=== PATIENT | female | born 1965 | race Caucasian/White ===

== ENCOUNTER 2019-03-06 12:13 | Observation (INO) | payer OTHER ==
[~2019-03-06] VITALS: Ht 157.5 cm; Wt 98.2 kg
[2019-03-06 13:10] LABS: Alanine Aminotransfer (ALT/SGP 30 U/L (12-78); Albumin, Blood 3.7 g/dL (3.4-5.0); Alk Phos 62 U/L (50-136); Anion Gap 8 mmol/L (6-16); Aspartate Aminotrans (AST/SGOT 28 U/L (12-37); Bilirubin, Total 0.5 mg/dL (0.1-1.0); Blood Urea Nitrogen 9 mg/dL (8-24); CO2, Blood 22 mmol/L (21-32); Calcium, Blood 8.9 mg/dL (8.5-10.1); Chloride, Blood 105 mmol/L (98-108); Creatinine, Blood 0.65 mg/dL (0.40-1.00); Globulin, Blood 3.6 g/dL (2.2-4.0); Glomerular Filtration Rate >60 (60-); Glucose, Blood 98 mg/dL (70-99); Potassium, Blood 4.5 mmol/L (3.5-5.5); Sodium, Blood 135 mmol/L (136-145); Total Protein, Blood 7.3 g/dL (6.4-8.2)
[2019-03-06 14:04] LABS: Source, Urine Clean Catch
[2019-03-06 14:12] LABS: BASOPHILS ABSOLUTE AUTO 0.05 K/mm3 (0.00-0.23); BASOPHILS PERCENT AUTO 0 % (0-2); EOSINOPHILS ABSOLUTE AUTO 0.02 K/mm3 (0.00-0.68); EOSINOPHILS PERCENT AUTO 0 % (0-6); Hemoglobin 14.3 g/dL (11.5-16.0); IMMATURE GRAN ABSOLUTE AUTO 0.02 K/mm3 (0.00-0.10); IMMATURE GRAN PERCENT AUTO 0 % (0-1); LYMPHOCYTES ABSOLUTE AUTO 0.98 K/mm3 (0.84-5.20); LYMPHOCYTES PERCENT AUTO 9 % (21-46); MONOCYTES PERCENT AUTO 4 % (4-13); Mean Corpuscular HGB 30.1 pg (26.0-34.0); Mean Corpuscular HGB Conc 32.5 g/dL (31.5-36.5); Mean Corpuscular Volume 93 fL (80-100); NEUTROPHILS PERCENT AUTO 87 % (41-73); Platelet Count 248 K/mm3 (150-400); RDW Coefficient Variation 12.5 % (11.7-14.2); Red Blood Cell Count 4.75 M/mm3 (3.80-5.20); White Blood Cell Count 11.37 K/mm3 (4.00-11.30)
[2019-03-06 14:13] LABS: Appearance, Urine Clear (Clear); Bilirubin, Urine Neg (Neg); Blood, Urine 2+ (Neg); Color, Urine Yellow (P-Yellow); Glucose Qualitative, Urine Neg (Neg); Ketones, Urine Neg (Neg); Leukocyte Esterase, Urine Neg (Neg); Nitrite, Urine Neg (Neg); Protein, Urine Neg (Neg); Specific Gravity, Urine 1.015 (1.003-1.022); Urobilinogen, Urine NORM (Normal)
[2019-03-06 14:38] LABS: Bacteria Rare /hpf; Mucus Heavy (0-Heavy); Red Blood Cells, Urine 0-2 /hpf (0-2); Squamous Epithelial Cells Mod /hpf (Few); White Blood Cells, Urine 0-2 /hpf (0-5)
[2019-03-06] MEDS ORDERED: Zantac150 MG PO (17:16)
[2019-03-06] MEDS ORDERED: MELA3 PO (17:16)
[2019-03-06] MEDS ORDERED: ASPI325EC PO (17:16)
--- NOTE | 2019-03-06 18:45 | NUR ---
pt arrived to room 213 from er dept pt is being admitted for ruq abd pain pos for gallstones npo after mn for lap natalie pt given cl diet no pain or nausea at this time oriented to room
--- NOTE | 2019-03-07 05:04 | NUR ---
SUMMARY PT WAS A NEW ADMIT AT THE END OF DAY SHIFT YESTERDAY FOR ACUTE VAZQUEZ. PT HAS DONE VERY WELL DURING NIGHT. DENIES ANY ABD PAIN AND N/V. PT WAS MEDICATED FOR SANDOVAL AT BEGINNING OF SHIFT. PT IS NPO, SURGICAL PACKET ON CHART. PLAN FOR OR TODAY FOR LAP VAZQUEZ. PT IS INDEPENDENT IN ROOM. CALL LIGHT IN REACH. WILL REPORT OFF TO DAY SHIFT.
--- NOTE | 2019-03-07 12:46 | NUR ---
TO DAY SURGERY WITH NOON ABX PER DAY SURG REQUEST
--- NOTE | 2019-03-07 13:06 | NUR ---
Surgical site prepped with 2% Chlorhexidine cloth wipe. History, Chart, Medications and Allergies reviewed before start of procedure. Lungs clear T/O to Auscultation. Patient confirms NPO status and agrees with scheduled surgery. Pre-Op teaching done. Pt verbalizes understanding.
--- NOTE | 2019-03-07 13:30 | NUR ---
ASSUMING CARE OF PT AT THIS TIME. PT IS SLEEPING
--- NOTE | 2019-03-07 15:04 | NUR ---
PT HAS BEEN RESTING QUIETLY WAITING TO HAVE SURGERY. PT TOLD RN THAT SHE FELT SHE WAS GOING TO THROW UP. RN SAT PT UP IN [facility] GAVE AN EMESIS BAG. ADMINISTERED 4MG IV ZOFRAN TO PT-PT ALLOWED TO HAVE PER HOSPITAL POLICY TIME FRAME.
--- NOTE | 2019-03-07 15:18 | NUR ---
SAW PT IN ROOM. PAPERWORK COMPLETE.
--- NOTE | 2019-03-07 15:20 | NUR ---
PT UP TO THE BATHROOM.
--- NOTE | 2019-03-07 15:20 | NUR ---
OR FARM MACHINERY ERECTOR RN (MAXWELL) BEDSIDE REPORT DONE.
--- NOTE | 2019-03-07 15:49 | NUR ---
03/07/19 1549 Nelly Sanders PT ON SCHEDULED ANTIBIOTICS
--- NOTE | 2019-03-08 04:54 | NUR ---
SHIFT SUMMARY: PT POD #1 FOR LAP VAZQUEZ. A&O X4, VS WNL. STERI STRIPS TO ABD X4. GAUZE APPLIED TO UMBILICAL STERI STRIP R/T SML AMT OF BLEEDING. GAUZE CHANGED TWICE THIS SHIFT. PT DENIES PAIN. OOB SEVERAL TIMES TO BATHROOM. INDEPENDENT IN ROOM. VOIDING WELL. SALINE LOCKED. JONAS CLR LIQS. DENIES N/V.
[2019-03-08] MEDS ORDERED: Norco 5-325 Ta1 EACH PO (11:05)
--- NOTE | 2019-03-08 11:43 | NUR ---
D/C D/C INSTRUCTIONS AND RX PROVIDED. PT STATES UNDERSTANDING. IV'S D/C'D WNL. PT AWAITING TRANSPORTATION AT THIS TIME. RESP UNLABORED, VSS. CALL LIGHT IN REACH.
== END 2019-03-08 12:12 | disposition home or self-care (01) ==
LOC: ER 12:13 → SURS 12:14
PROVIDERS: Emergency Medicine; Surgery; ADMIT Surgery
PROC: 0FT44ZZ Resection of Gallbladder, Percutaneous Endoscopic Approach (ICD-10-PCS; principal; 2019-03-07 13:45)
DX: K80.00 Calculus of gallbladder with acute cholecystitis without obstruction (principal); I25.10 Atherosclerotic heart disease of native coronary artery without angina pectoris; Z95.5 Presence of coronary angioplasty implant and graft; Z88.1 Allergy status to other antibiotic agents
CPT/HCPCS: 76705; 80053; 81001; 83690; 85025; 93005; 93010; 96365; 99285-25; A9270-GY; J0295; J1100; J1885; J2250; J2405; J2704; J2710; J3010; J7030; J7120

== ENCOUNTER 2020-08-08 08:27 | Inpatient (IN) | payer OTHER ==
[~2020-08-08] VITALS: Ht 157.5 cm; Wt 101.7 kg
[~2020-08-08 08:27] MED LIST: ASPI325EC PO; Norco 5-325 Ta1 EACH PO; Zantac150 MG PO
[2020-08-08 08:55] LABS: BASOPHILS ABSOLUTE AUTO 0.07 K/mm3 (0.00-0.23); BASOPHILS PERCENT AUTO 1 % (0-2); EOSINOPHILS ABSOLUTE AUTO 0.12 K/mm3 (0.00-0.68); EOSINOPHILS PERCENT AUTO 2 % (0-6); Hematocrit 46.3 % (33.0-51.0); Hemoglobin 14.9 g/dL (11.5-16.0); IMMATURE GRAN ABSOLUTE AUTO 0.01 K/mm3 (0.00-0.10); IMMATURE GRAN PERCENT AUTO 0 % (0-1); LYMPHOCYTES ABSOLUTE AUTO 2.03 K/mm3 (0.84-5.20); LYMPHOCYTES PERCENT AUTO 30 % (21-46); MONOCYTES ABSOLUTE AUTO 0.38 K/mm3 (0.16-1.47); MONOCYTES PERCENT AUTO 6 % (4-13); Mean Corpuscular HGB 29.7 pg (26.0-34.0); Mean Corpuscular HGB Conc 32.2 g/dL (31.5-36.5); Mean Corpuscular Volume 92 fL (80-100); Mean Platelet Volume 12.1 fL (9.1-12.4); NEUTROPHILS PERCENT AUTO 61 % (41-73); Platelet Count 225 K/mm3 (150-400); RDW Coefficient Variation 12.6 % (11.7-14.2); RDW Standard Deviation 43.1 fL (35.1-46.3); Red Blood Cell Count 5.02 M/mm3 (3.80-5.20); White Blood Cell Count 6.71 K/mm3 (4.00-11.30)
[2020-08-08 09:20] LABS: Alanine Aminotransfer (ALT/SGP 26 U/L (12-78); Albumin, Blood 3.4 g/dL (3.4-5.0); Alk Phos 59 U/L (50-136); Anion Gap 6 mmol/L (6-16); Aspartate Aminotrans (AST/SGOT 11 U/L (12-37); Bilirubin, Total 0.4 mg/dL (0.1-1.0); Blood Urea Nitrogen 10 mg/dL (8-24); Bun/Creatinine Ratio 13.7 (12.0-20.0); CO2, Blood 25 mmol/L (21-32); Calcium, Blood 8.8 mg/dL (8.5-10.1); Chloride, Blood 110 mmol/L (98-108); Creatinine, Blood 0.73 mg/dL (0.40-1.00); Globulin, Blood 3.3 g/dL (2.2-4.0); Glomerular Filtration Rate >60 (60-); Glucose, Blood 115 mg/dL (70-99); Potassium, Blood 3.8 mmol/L (3.5-5.5); Sodium, Blood 141 mmol/L (136-145); Total Protein, Blood 6.7 g/dL (6.4-8.2); Troponin I <0.015 ng/mL (0.000-0.040)
[2020-08-08 14:01] LABS: Source, Urine Clean Catch
[2020-08-08 14:06] LABS: Bilirubin, Urine Neg (Neg); Blood, Urine 1+ (Neg); Glucose Qualitative, Urine Neg (Neg); Ketones, Urine Neg (Neg); Leukocyte Esterase, Urine Neg (Neg); Nitrite, Urine Neg (Neg); Protein, Urine Neg (Neg); Urobilinogen, Urine NORM (Normal)
[2020-08-08] MEDS ORDERED: MELA3 PO (14:17)
[2020-08-08] MEDS ORDERED: FAMO20 PO (14:19)
[2020-08-08] MEDS ORDERED: POLY500 PO (14:19)
[2020-08-08] MEDS ORDERED: LACT PO (14:20)
[2020-08-08 14:21] LABS: Appearance, Urine Clear (Clear); Color, Urine Yellow (P-Yellow)
[2020-08-08 14:22] LABS: Bacteria Few /hpf; Squamous Epithelial Cells Rare /hpf (Few); White Blood Cells, Urine 0-2 /hpf (0-5)
[2020-08-08 14:22] LABS: International Normalized Ratio 0.98; Prothrombin Time Results 10.5 Sec (9.7-11.5)
--- NOTE | 2020-08-08 19:13 | NUR ---
ADMIT NOTE RECEIVED REPORT FROM NI RODRIGUEZ RN; AND BEDSIDE REPORT FROM MIMI GALLAGHER IN BUSINESS PROJECT ANALYST. PT TO ROOM AT 1710 VIA BED. PT ORIENTED TO ROOM AND CALL LIGHT. PT EDUCATED ON FALL RISK. PT A&Ox4; CALM AND COOPERATIVE WITH CARE. PT IND TO BATHROOM; SBA WITH IV POLES. PT DENIES PAIN, CHEST PAIN, SOB, NAUSEA AND DIZZINESS. RIGHT RADIAL SITE; NO BLEEDING, BRUISING OR HEMATOMA NOTED. DENIES NUMB/TINGLING. VSS. NO OTHER ACUTE CHANGES NOTED. REPORT GIVEN TO ONCOMING RN.
--- NOTE | 2020-08-08 21:34 | NUR ---
UPDATE ALL AIR OUT OF TR BAND AT APPROX 2100. NO BLEEDING OR BRUISING NOTED TO SITE. PATIENT DENIES ANY N/T TO RIGHT HAND AND FINGERS. WILL CONTINUE TO MONITOR SITE.
--- NOTE | 2020-08-09 06:23 | NUR ---
SHIFT SUMMARY PATIENT PLEASENT AND COOPERATIVE THROUGHOUT THE NIGHT. PATIENT'S HEPARING GTT RESTARTED PER ORDERS. PATIENT MEDICATED FOR PAIN PER EMAR. PATIENT REPORTS SHE FELT LIKE SHE SLEPT "PRETTY WELL" LAST NIGHT. ARMBAORD TO RIGHT WRIST. ANGIO ACCESS SITE COVERED WITH TEGADERM. NO SIGNS OF BLEEDING OR BRUISING NOTED TO SITE. PATIENT PROVIDED WITH POST ANGIO EDUCATION AND MOVEMENT RESTRICTIONS, PATIENT VERBALIZES UNDERSTANDING. PATIENT CURRENTLY AWAKE AND RESTING IN BED. DENIES ANY NEEDS AT THIS TIME. WILL CONTINUE TO MONITOR PATIENT AND REPORT TO ONCOMING RN.
[2020-08-09 06:33] LABS: BASOPHILS ABSOLUTE AUTO 0.06 K/mm3 (0.00-0.23); BASOPHILS PERCENT AUTO 1 % (0-2); EOSINOPHILS ABSOLUTE AUTO 0.07 K/mm3 (0.00-0.68); EOSINOPHILS PERCENT AUTO 1 % (0-6); Hematocrit 38.7 % (33.0-51.0); Hemoglobin 12.1 g/dL (11.5-16.0); IMMATURE GRAN ABSOLUTE AUTO 0.02 K/mm3 (0.00-0.10); IMMATURE GRAN PERCENT AUTO 0 % (0-1); LYMPHOCYTES ABSOLUTE AUTO 1.69 K/mm3 (0.84-5.20); LYMPHOCYTES PERCENT AUTO 20 % (21-46); MONOCYTES ABSOLUTE AUTO 0.61 K/mm3 (0.16-1.47); MONOCYTES PERCENT AUTO 7 % (4-13); Mean Corpuscular HGB 29.6 pg (26.0-34.0); Mean Corpuscular HGB Conc 31.3 g/dL (31.5-36.5); Mean Corpuscular Volume 95 fL (80-100); Mean Platelet Volume 12.4 fL (9.1-12.4); NEUTROPHILS ABSOLUTE AUTO 5.82 K/mm3 (1.96-9.15); NEUTROPHILS PERCENT AUTO 71 % (41-73); Platelet Count 185 K/mm3 (150-400); RDW Coefficient Variation 12.9 % (11.7-14.2); RDW Standard Deviation 44.8 fL (35.1-46.3); Red Blood Cell Count 4.09 M/mm3 (3.80-5.20); White Blood Cell Count 8.27 K/mm3 (4.00-11.30)
[2020-08-09 07:11] LABS: Alanine Aminotransfer (ALT/SGP 43 U/L (12-78); Albumin, Blood 2.8 g/dL (3.4-5.0); Alk Phos 50 U/L (50-136); Anion Gap 3 mmol/L (6-16); Aspartate Aminotrans (AST/SGOT 166 U/L (12-37); Bilirubin, Total 0.4 mg/dL (0.1-1.0); Blood Urea Nitrogen 8 mg/dL (8-24); Bun/Creatinine Ratio 11.3 (12.0-20.0); CO2, Blood 25 mmol/L (21-32); Calcium, Blood 7.9 mg/dL (8.5-10.1); Chloride, Blood 113 mmol/L (98-108); Creatinine, Blood 0.71 mg/dL (0.40-1.00); Globulin, Blood 2.8 g/dL (2.2-4.0); Glomerular Filtration Rate >60 (60-); Glucose, Blood 93 mg/dL (70-99); Magnesium, Blood 2.2 mg/dL (1.6-2.4); Sodium, Blood 141 mmol/L (136-145); Total Protein, Blood 5.6 g/dL (6.4-8.2)
--- NOTE | 2020-08-09 18:03 | NUR ---
SHIFT SUMMARY PT IS ALERT AND ORIENTEDx4, DENIES ANY CHEST PAIN. RIGHT RADIAL ACCESS SITE IS C/D/I, NO HEMATOMA, ARMBOARD REMAINS IN PLACE. PT DEVELOPED HEADACHE TODAY WITH NO IMPROVEMENT WITH TYLENOL. ORDERS RECEIVED FOR PERCOCET THIS AFTERNOON AND PT REPORTS MARKED IMPROVEMENT TO HEADACHE. HEPARIN GTT CONTINUES TO INFUSE PER ORDERS, SEE EMAR FOR MEDICATION ADMINISTRATIONS. PT WAS CHANGED TO MEDICAL STATUS WITH TELEMETERY THIS AFTERNOON. TELEMETERY SHOWS PT TO BE SINUS HARPER/RYTHMN, WITH RATES 50'S-70'S. VITALS HAVE BEEN STABLE.
--- NOTE | 2020-08-10 06:28 | NUR ---
SHIFT SUMMARY PATIENT PLEASENT AND COOPERATIVE THROUGHOUT THE NIGHT. PATIENT MEDICATED FOR NAUSEA AND HEADACHES PER EMAR. PATIENT APPEARED TO BE ABLE TO NAP ON AND OFF THROUGHOUT THE NIGHT. PATIENT'S HEPARIN GTT CONTINUES TO RUN PER ORDERS. ARMBOARD TO RIGHT WRIST REMAINS IN PLACE. ANGIO ACCESS SITE TO RIGHT WRIST REMAINS UNCHANGED FROM INITAL ASSESSMENT. VITAL SIGNS CHARTED. WILL CONTINUE TO MONITOR PATIENT AND REPORT TO ONCOMING RN.
--- NOTE | 2020-08-10 08:07 | NUR ---
ASSUMED CARE AT 0700, REPORT FROM MIMI GANT. RESTING SUPINE IN BED IN LOW FOWLERS, A/A/OX4, RIGHT RADIAL SITE SLIGHT BRUISING, NO SWELLING, TEGADERM IN PLACE WITH NO BLEEDING. RIGHT ARM BOARD IN PLACE. REPORTS HEADACHE THIS AM, PREVIOUSLY MEDICATED WITH TYLENLOL. OFERED PAIN MEDS, DECLINES AT THIS TIME. HEPARIN INFUSING AT 15UNITS/KG. PLAN OF CARE REVIWED, WILL CONTINE TO TREAT AND MONITOR.
--- NOTE | 2020-08-10 10:14 | NUR ---
SCAR DC'D AND IMDUR HELD PER VERBAL ORDER FROM DR. WILLIAMSON.
[2020-08-10] MEDS ORDERED: ACET325 PO (11:33)
[2020-08-10] MEDS ORDERED: ASPI81CH PO (11:34)
[2020-08-10] MEDS ORDERED: Lipitor80 MG PO (11:34)
[2020-08-10] MEDS ORDERED: METO25ER PO (11:35)
[2020-08-10] MEDS ORDERED: NITR.4SL SL (11:36)
== END 2020-08-10 13:42 | disposition home or self-care (01) | DRG 280 ==
LOC: ER 08:27 → PCU 15:57 → MEDS 15:57 → PCU 17:10
PROVIDERS: Emergency Medicine; Family Medicine; ADMIT Internal Medicine
PROC: 4A023N7 Measurement of Cardiac Sampling and Pressure, Left Heart, Percutaneous Approach (ICD-10-PCS; principal; 2020-08-08)
PROC: B2111ZZ Fluoroscopy of Multiple Coronary Arteries using Low Osmolar Contrast (ICD-10-PCS; 2020-08-08)
DX: I21.4 Non-ST elevation (NSTEMI) myocardial infarction (principal); I25.42 Coronary artery dissection; Z68.41 Body mass index [BMI] 40.0-44.9, adult; I25.10 Atherosclerotic heart disease of native coronary artery without angina pectoris; K21.9 Gastro-esophageal reflux disease without esophagitis; E66.9 Obesity, unspecified; Z95.5 Presence of coronary angioplasty implant and graft; I25.2 Old myocardial infarction; Z87.891 Personal history of nicotine dependence; Z88.1 Allergy status to other antibiotic agents; Z79.899 Other long term (current) drug therapy; Z79.82 Long term (current) use of aspirin
CPT/HCPCS: 36415; 71046; 76937; 80053; 81001; 83735; 84484; 85025; 85347; 85610; 85730; 93005; 93010; 93306; 93458; 96361; 96365; 99152; 99153; 99285-25; A9270; A9270-GY; C1769; C1894; J1644; J2250; J2405; J3010; J7030; J7040; Q9967

== ENCOUNTER 2021-07-03 09:20 | Day surgery (SDC) | payer OTHER ==
[~2021-07-03] VITALS: Ht 157.5 cm; Wt 101.8 kg
[~2021-07-03 09:20] MED LIST changes: +ACET325 PO; +ASPI81CH PO; +ATOR80 PO; +FAMO20 PO; +LACT PO; +Lipitor80 MG PO; +MELA3 PO; +METO25ER PO; +NITR.4SL SL; +POLY500 PO; +PROBIOTICS; +PSYLLIUM FIBER0.4 GM PO
--- NOTE | 2021-07-03 10:18 | NUR ---
History, Chart, Medications and Allergies reviewed before start of procedure. Patient confirms NPO status and agrees with scheduled surgery. Reports taking all of colon prep with clear results. Patient States Post-Procedure ride home has been arranged with [employer]. Dr. Perry aware of taxi transport home.
--- NOTE | 2021-07-03 11:43 | NUR ---
07/03/21 1143 oLrelei Abbasi History, Chart, Medications and Allergies reviewed before start of procedure.MONITOR INTACT WITH CONTINUOUS PULSE OXIMETRY AND INTERMITTENT BP.3-LEAD EKG REVIEWED WITH PHYSICIAN PRIOR TO START OF PROCEDURE.O2 VIA N/C INTACT THROUGHOUT SEDATION/PROCEDURE. MODERATE SEDATION PER DR NOWAK
--- NOTE | 2021-07-03 13:06 | NUR ---
Discharge instructions reviewed with patient. Patient verbalizes understanding. Copy given to patient to take home. Discharged via wheelchair to private car for ride home.
== END 2021-07-03 13:08 | disposition home or self-care (01) ==
LOC: ORSCMMR 09:20
PROVIDERS: Internal Medicine Gastroenterology
PROC: 0DBP8ZX Excision of Rectum, Via Natural or Artificial Opening Endoscopic, Diagnostic (ICD-10-PCS; principal; 2021-07-03 10:30)
DX: Z12.11 Encounter for screening for malignant neoplasm of colon (principal); D12.8 Benign neoplasm of rectum; I25.10 Atherosclerotic heart disease of native coronary artery without angina pectoris; I25.2 Old myocardial infarction; G47.30 Sleep apnea, unspecified; Z79.82 Long term (current) use of aspirin; Z79.899 Other long term (current) drug therapy
CPT/HCPCS: 88305; J2250; J3010; J7120

== ENCOUNTER → 2021-09-23 | Outpatient (CLI) | payer OTHER | END | disposition home or self-care (01) | LOC: LAB 12:35 → LAB SHORT 12:35 | DX: L82.1 Other seborrheic keratosis (principal) | CPT/HCPCS: 88305 ==